=== PATIENT | female | born 1975 | race Caucasian/White ===

== ENCOUNTER 2017-05-16 18:33 | Emergency (ER) | payer SELFPAY ==
[~2017-05-16] VITALS: Ht 162.6 cm; Wt 71.0 kg
[~2017-05-16 18:33] MED LIST: HYDR-4107 PO; NAPR500T2 PO; ZANA6CAP PO
[2017-05-16 18:40] VITALS: BP 127/74; PULSE 87; RESP 16; TEMP 98; O2SAT 99
[2017-05-16] MEDS ORDERED: BACL10TA PO (19:14)
[2017-05-16] MEDS ORDERED: DICL75TA PO (19:14)
--- NOTE | 2017-05-16 19:19 | PD ---
HPI Chief Complaint: Musculoskeletal Complaint Time Seen by Provider: 19:09 Travel History International Travel<30 days: No Contact w/Intl Traveler<30days: No Traveled to known affect area: No History of Present Illness HPI 41-year-old female presents for evaluation of lower back pain. She reports chronic lower back pain which exacerbations approximately twice a week. Today she started having pain in her lower back. Pain is an aching pain which radiates into the left leg which is common for her. Denies any acute injury. Denies any acute incontinence, saddle anesthesia, abdominal pain or any other abnormal change in her typical pain. She does not currently use any medication for symptom relief. No other complaints. PFSH Past Medical History Musculoskeletal: Yes (CHRONIC BACK PAIN) Immunizations Current: Yes Migraines: Yes ?: Not LMP: 2 WEEKS : 4 Para: 2 Past Surgical History Section: Yes (X1) Other Surgery: Yes (BREAST AUGMENTATION) Social History Alcohol Use: Yes (RARE) Tobacco Use: No (NEVER) Substance Use: No Allergies-Medications (Allergen,Severity, Reaction): Coded Allergies: No Known Allergies (Unverified Adverse Reaction, Unknown, 05/16/17) Reported Meds & Prescriptions Reported Meds & Active Scripts Active Baclofen 10 Mg Tab 10 Mg PO Q8HR [address] (Diclofenac Sodium) 75 Mg Tabdr 75 Mg PO BID 10 Days Naproxen 500 Mg Tab 500 Mg PO BID PRN Reported Hydrocodone-Acetaminophen 5-300 Mg Tab Unknown Dose PO Q6H PRN Zanaflex (Tizanidine HCl) 6 Mg Cap 6 Mg PO TID Review of Systems Except as stated in HPI: all other systems reviewed are Neg Physical Exam Narrative GENERAL: Well-developed well-nourished female in no acute distress SKIN: Warm and dry. HEAD: Atraumatic. Normocephalic. EYES: Pupils equal and round. No scleral icterus. No injection or drainage. ENT: No nasal bleeding or discharge. Mucous membranes pink and moist. NECK: Trachea midline. No JVD. CARDIOVASCULAR: Regular rate and rhythm. No murmur appreciated. RESPIRATORY: No accessory muscle use. Clear to auscultation. Breath sounds equal bilaterally. GASTROINTESTINAL: Abdomen soft, non-tender, nondistended. Hepatic and splenic margins not palpable. MUSCULOSKELETAL: No obvious deformities. 5 out of 5 muscle strength in lower extremities. Some tenderness to palpation to lumbar paravertebral musculature. NEUROLOGICAL: Awake and alert. No obvious cranial nerve deficits. Motor grossly within normal limits. Normal speech. PSYCHIATRIC: Appropriate mood and affect; insight and judgment normal. Data Data Last Documented VS Vital Signs Date Time Temp Pulse Resp B/P (MAP) Pulse Ox O2 Delivery O2 Flow Rate FiO2 05/16/17 18:40 98.0 87 16 127/74 (91) 99 Orders Orders Ed Discharge Order (05/16/17 19:14) [facility] Medical Decision Making Medical Screen Exam Complete: Yes Emergency Medical Condition: Yes Medical Record Reviewed: Yes Differential Diagnosis Acute exacerbation of chronic back pain, herniated nucleus pulposis, degenerative disc disease, lumbar strain Narrative Course The patient appears to have chronic lower back pain. She'll be given prescriptions for diclofenac and baclofen. Diagnosis Primary Impression: Chronic radicular pain of lower back Additional Instructions: Medication as needed. Do not drive or drink alcohol when taking baclofen. Take diclofenac with meals. Follow-up with primary care physician. Return for any emergent medical conditions. Med/Other Pt SpecificInfo: Prescription(s) given Scripts Baclofen (Baclofen) 10 Mg Tab 10 MG PO Q8HR for 10 Days, TAB 0 Refills Prov: Zack Ribeiro MD 05/16/[address] (Diclofenac Sodium DR) 75 Mg Tabdr 75 MG PO BID for 10 Days, #20 TAB 0 Refills Prov: Zack Ribeiro MD 05/16/17 Disposition: 01 DISCHARGE HOME Condition: Stable Ben Schroeder May 16, 2017 19:19
== END 2017-05-16 19:45 | disposition home or self-care (01) ==
LOC: PHED 18:33 → PHEFT 19:45
DX: M54.16 Radiculopathy, lumbar region (principal); G89.29 Other chronic pain; Z79.899 Other long term (current) drug therapy
CPT/HCPCS: 99284